=== PATIENT | female | born 1990 | race Hispanic/Latino ===

== ENCOUNTER 2018-01-29 22:15 | Inpatient (IN) | payer MEDICAID ==
--- NOTE | 2018-01-29 22:28 | C.PDOC ---
History Of Present Illness Patient is a transfer from [facility] where she was medically cleared and accepted in transfer by Dr. Aly for ETOH and opiate use disorder. Denies any physical complaints at this time. Time Seen by Provider: 01/29/18 22:26 Chief Complaint (Nursing): Substance Abuse History Per: Patient History/Exam Limitations: no limitations Onset/Duration Of Symptoms: Days Current Symptoms Are (Timing): Still Present Suicide/Self Injury Attempted (Context): None Severity: None Pain Scale Rating Of: 0 Involuntary Hold By: None Recent travel outside of the [place]: No Past Medical History Reviewed: Historical Data, Nursing Documentation, Vital Signs Family History: States: No Known Family Hx - Social History Hx Alcohol Use: Yes Hx Substance Use: Yes (Cocaine) - Immunization History Hx Tetanus Toxoid Vaccination: No Hx Influenza Vaccination: No Hx Pneumococcal Vaccination: No Review Of Systems Constitutional: Negative for: Fever, Chills Cardiovascular: Negative for: Chest Pain, Palpitations Respiratory: Negative for: Cough, Shortness of Breath Gastrointestinal: Negative for: Nausea, Vomiting Neurological: Negative for: Weakness, Numbness Physical Exam - Physical Exam Appears: Non-toxic Skin: Warm, Dry Head: Normacephalic Oral Mucosa: Moist Chest: Symmetrical, No Tenderness Cardiovascular: Rhythm Regular Respiratory: No Rales, No Rhonchi, No Wheezing Gastrointestinal/Abdominal: Soft, No Tenderness Neurological/Psych: Oriented x3 Disposition Discussed With : Mandie Aly Comment: accepted the pt on his service and took over hte care at 10:29PM Doctor Will See Patient In The: Hospital Counseled Patient/Family Regarding: Studies Performed, Diagnosis - Disposition Disposition: HOSPITALIZED Disposition Time: 22:28 Condition: FAIR Forms: [facility] (Bengali) - POA Present On Arrival: None - Clinical Impression Clinical Impression: Drug dependence, Drug abuse, Alcohol use disorder - Scribe Statement The provider has reviewed the documentation as recorded by the Scribe Marcelo Garcia All medical record entries made by the Scribe were at my direction and personally dictated by me. I have reviewed the chart and agree that the record accurately reflects my personal performance of the history, physical exam, medical decision making, and the department course for this patient. I have also personally directed, reviewed, and agree with the discharge instructions and disposition. Decision To Admit - Pt Status Changed To: Hospital Disposition Of: Inpatient - Admit Certification Admit to Inpatient:: After my assessment, the patient will require hospitalization for at least two midnights. This is because of the severity of symptoms shown, intensity of services needed, and/or the medical risk in this patient being treated as an outpatient. - InPatient: Physician Admission Certification: I certify that this patient requires 2 or more midnights of care for the following reason:: After my assessment, the patient will require hospitalization for at least two midnights. This is because of the severity of symptoms shown, intensity of services needed, and/or the medical risk in this patient being treated as an outpatient. - . Bed Request Type: Detox Admitting Physician: Mandie Aly Patient Diagnosis: Drug dependence, Drug abuse, Alcohol use disorder
--- NOTE | 2018-01-30 04:20 | PCM.BM ---
<Rodrigo Thompson - Last Filed: 01/30/18 04:18> Treatment Plan Problems - Problems identified on initial assessmt Alcohol Abuse Date Initiated: 01/29/18 Time Initiated: 23:30 Assessment reference: NA Status: Active Treatment assets and liabiliti Patient Assests: ADL independent, physically healthy Patient Liabilities: poor support system, substance abuse (Alcohol, cocaine) - Milieu Protocol Maintain good personal hygiene: daily Encourage regular showers, daily Remind patient to perform daily oral care, every shift Assist patient to perform ADL's Conduct patient checks and document Observation sheet: Q15 minutes Maintain personal safety: every shift Educate patient to report safety concerns to staff, every shift Monitor environment for contraband/sharps Medication safety: Monitor for expected outcome, potential side effects: every shift, Assess barriers to learning: every shift, Assess readiness for medication education: every shift <Mandie Aly - Last Filed: 01/30/18 15:41> - Diagnosis (1) Alcohol use disorder Status: Acute Interventions: 01/30/18 15:41 * Assess 7x/week regarding severity of withdrawal * Educate regarding risks, benefits, side effects and alternatives of medications * Use Motivational Interviewing for abstinence * Use CBT for relapse prevention * Medication management for withdrawal symptoms * Encourage medication assisted treatment * <Mary Lou Juares - Last Filed: 01/31/18 13:36> Family Contact Family involvement: Manjindery/SO not involved - Goals for Treatment Patient goals for treatment: Complete detox and apply for inpatient rehab. Discharge/Continuing Care - Education Needs Education Needs: Patient Medication, Patient Diagnosis/Disease Process, Patient Coping Skills, Patient Anger Management skills, Patient Placement options, Patient Community resources - Discharge Discharge Criteria: No longer exhibiting s/s of withdrawal, Reduction of target symptoms Discharge to:: Substance Abuse Rehab - Treatment Team Participation Patient/Family/SO Statement: 01/31/18 13:36 "I guess I wanna go to rehab. I don't really care if it's short or long-term..." Discussed with Family/SO: No Was Patient/Family/SO present at Treatment Team Meeting: Yes
[2018-01-30] MEDS: Multiple Vitamins Tab PO SCH (10:36)
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
[2018-01-31] MEDS: Multiple Vitamins Tab PO SCH (09:49)
[2018-01-31] MEDS ORDERED: Vitamins A & D Oint UD Foilpak TOP PRN (13:00)
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
[2018-01-31 14:17] VITALS: BP 127/86; PULSE 97; RESP 18; TEMP 97.8; O2SAT 98
[2018-02-02] MEDS ORDERED: Pneumococcal 23-Valent Vaccine IM ONE (10:00)
[2018-02-02] MEDS ORDERED: Influenza Vaccine 60 MCG/0.5 ML SYR (3 yr & up) IM ONE (10:00)
== END 2018-01-31 16:10 | disposition left against medical advice (07) | DRG 770 ==
LOC: C.ER 22:15 → C.9E 22:33 → C.7D 22:59
PROVIDERS: ADMIT Psychiatry & Neurology Psychiatry; ATTEND Psychiatry & Neurology Psychiatry
PROC: HZ2ZZZZ Detoxification Services for Substance Abuse Treatment (ICD-10-PCS; principal; 2018-01-29)
PROC: HZ59ZZZ Individual Psychotherapy for Substance Abuse Treatment, Supportive (ICD-10-PCS; 2018-01-29)
PROC: GZ3ZZZZ Medication Management (ICD-10-PCS; 2018-01-29)
PROC: HZ46ZZZ Group Counseling for Substance Abuse Treatment, Psychoeducation (ICD-10-PCS; 2018-01-29)
DX: F10.230 Alcohol dependence with withdrawal, uncomplicated (principal); F33.1 Major depressive disorder, recurrent, moderate; F14.90 Cocaine use, unspecified, uncomplicated; F43.10 Post-traumatic stress disorder, unspecified; F17.210 Nicotine dependence, cigarettes, uncomplicated